=== PATIENT | male | born 1955 | race Two or more races ===

== ENCOUNTER → 2020-04-28 | Day surgery (SDC) | payer MEDICARE, MEDICAID ==
[2020-04-22 07:55] LABS: BASOPHILS % (AUTO) 1.8 % (0.0-2.0); EOSINOPHILS % (AUTO) 11.8 % (0.0-3.0); HEMATOCRIT 27.9 % (42.0-52.0); HEMOGLOBIN 8.5 G/DL (14.2-18.0); LYMPHOCYTES % (AUTO) 28.5 % (20.0-45.0); MEAN CORPUSCULAR VOLUME 60 FL (80-99); MONOCYTES % (AUTO) 11.7 % (1.0-10.0); NEUTROPHILS % (AUTO) 46.3 % (45.0-75.0); PLATELET COUNT 345 K/UL (150-450); RED BLOOD COUNT 4.68 M/UL (4.70-6.10); RED CELL DISTRIBUTION WIDTH 19.4 % (11.6-14.8); WHITE BLOOD COUNT 6.6 K/UL (4.8-10.8)
[2020-04-22 08:01] LABS: ANION GAP 8 mmol/L (5-15); BLOOD UREA NITROGEN 9 mg/dL (7-18); CALCIUM 8.7 MG/DL (8.5-10.1); CARBON DIOXIDE 25 MMOL/L (21-32); CHLORIDE 98 MMOL/L (98-107); CREATININE 1.1 MG/DL (0.55-1.30); POTASSIUM 4.3 MMOL/L (3.5-5.1); SODIUM 131 MMOL/L (136-145)
[2020-04-22 08:08] LABS: INR 1.2 (0.9-1.1)
--- NOTE | 2020-04-22 15:15 | Pre-op HX & Phy Repo 2 SIG ---
DATE OF ADMISSION: 04/28/2020 PRESURGICAL INTERNAL MEDICINE HISTORY AND PHYSICAL DATE OF EVALUATION: 04/22/2020. REASON FOR EVALUATION: I was asked by Dr. Caio Weems to see this 64-year-old Persian-speaking male, who is going for elective surgery on the right eye. The patient has a nuclear sclerotic cataract, right eye. Please see Ophthalmology History and Physical by Dr. Caio Weems. The patient was evaluated in outpatient procedure department. PAST MEDICAL HISTORY/REVIEW OF SYSTEMS: Remarkable for history of hypertension. No history of chest pain, palpitation, or heart attack. Denies history of diabetes. No history of stroke or seizures. Denies history of respiratory problem. No GI bleeding or hepatitis. No liver problem. Denies history of thyroid problem or renal insufficiency. PAST SURGICAL HISTORY: None. FAMILY HISTORY: Mother , had diabetes mellitus. Father, unknown. ALLERGIES: Not known. PRESENT MEDICATIONS: None. SOCIAL HISTORY: Denies history of tobacco use. The patient drinks approximately 4 to 6 beers a week. No street drugs. PHYSICAL EXAMINATION: GENERAL: Alert, well-developed, well-nourished male in his 60s, in no acute distress. VITAL SIGNS: Blood pressure 124/93, temperature 97.8, pulse 86, respirations 18, O2 saturation 100% on room air. SKIN: Clear. Warm. No rashes. No diaphoresis. LYMPHATICS: Lymph nodes not enlarged. HEENT: Head is normocephalic and atraumatic. Ears, clear, no discharge. Eyes, full description per Dr. Caio Weems. Mouth, clear and moist. No dentures. NECK: Supple. No jugular venous distention. Carotids artery +2. Trachea midline. CHEST: No deformity or asymmetry. LUNGS: Clear to auscultation and percussion. Bilateral rhonchi. HEART: Sinus, regular. No ectopy. No murmur. No S3, S4. ABDOMEN: Soft, benign. No rebound. No palpable mass. Liver and spleen are not enlarged. EXTREMITIES: No edema. The patient has bilateral varicose vein. No phlebitis or calf tenderness. GENITOURINARY: No dysuria. No CVA tenderness. NEUROLOGIC: No tremor. No nystagmus. 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 LABORATORY DATA: Sodium 133, potassium 4.3, chloride 99, BUN 9, creatinine 1.1. Estimated GFR more than 60 mL/min. Glucose 117 and calcium 8.9. CBC, hemoglobin 8.5, hematocrit 27.9, white blood cells 6.6, red blood cells 4.68, . PT 12.7, INR 1.2, PTT 27. COVID virus test pending, will be done Tuesday. IMPRESSION: 1. Nuclear sclerotic cataract, right eye. 2. Varicose vein, lower extremities. 3. Anemia, hemoglobin 8.5 and hematocrit 27.9. 4. 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 PLAN: Cataract extraction, right eye with intraocular lens implant per Dr. Caio Weems. CONCLUSION: The patient is a 64-year-old male with incomplete right bundle-branch block on EKG. Vital signs stable. Diastolic pressure . The patient has anemia, , cause unknown. The patient should be NPO after midnight Tuesday for Tuesday surgery, April 28, 2020. The patient's condition optimized for surgery, need evaluation for anemia. Chacho Lambert M.D. DR: FLAVIO JOB#: [id number] CC:
--- NOTE | 2020-04-23 14:00 | Opthalmology H&P ---
Ophthalmology H&P H&P Chief Complaint: decreased vision in right eye HPI Vision Affects Ability to: read, manage personal affairs Past Ocular History: glaucoma HPI Narrative Blurry vision Exam Visual Acuity: OD 20/200 OS 20/100 Tension: OD 14 OS 16 Eye Exam: normal OU: external exam, palpebral fissure-width, marginal reflex distance, levator function, corneas, anterior chambers, fundus exam; findings: lens - NS Cataracts OU Assessment/Plan Treatment Plan: cataract extraction w/ lens implant Goals of Treatment: improvement of vision, enhance quality of life Attestation Attestation The risks and benefits of the surgery as well as alternative procedures were explained to the patient in detail. Caio Weems MD Apr 23, 2020 14:00
--- NOTE | 2020-04-23 14:02 | Pre-Procedure Note/Attestation ---
Pre-Procedure Note/Attestation Complete Prior to Procedure Planned Procedure: right Procedure Narrative: Cataract extraction with intraocular lens implant right eye Indications for Procedure Pre-Operative Diagnosis: Cataract extraction with intraocular lens implant right eye Attestation I attest that I discussed the nature of the procedure; its benefits; risks and complications; and alternatives (and the risks and benefits of such alternatives), prior to the procedure, with the patient (or the patient's legal patient access representative). I attest that, if there was a reasonable possibility of needing a blood transfusion, the patient (or the patient's legal patient access representative) was given the [facility] standardized written summary, pursuant to the Tolu Gabe Blood Safety Act ([place] Health and Safety Code # 1645, as amended). I attest that I re-evaluated the patient just prior to the surgery and that there has been no change in the patient's H&P, except as documented below: Caio Weems MD Apr 23, 2020 14:02
[2020-04-28] VITALS (8 sets, daily range): BP systolic 137–174; BP diastolic 87–101
[~2020-04-28] VITALS: Ht 165.1 cm; Wt 65.8 kg
[~2020-04-28] MED LIST: Akten 3.5% 1ml Btl RIGHT EYE ONE; BSS 15ml BTL ONE; BSS 500ml btl ONE; Carbachol 0.01% Op Soln 1.5ml vial ONE; EPINEPHrine 1mg/1ml Amp ONE; LR 1000ml 1,000 ML IVLG SCH; LR 1000ml ONE; Maxitrol Opth Oint 3.5gm ONE; Midazolam 2mg/2ml Inj ONE; Pilocarpine 1% Opth 15ml Soln ONE; Povidone-Iodine 5% opth solution ONE; Proparacaine 0.5% Opth Soln 15ml RIGHT EYE ONE; Sodium Hyaluronate 10 mg/ml 0.85ml ONE; Tetracaine 0.5% Opth 4ml Soln RIGHT EYE ONE; fentaNYL 100 mcg/2 mL IV ONE; fentaNYL 100 mcg/2 mL IV PRN; prednisoLONE acetate 1% Opth Susp 1ml ONE
[2020-04-28] MEDS: Tropicamide 1% Opth 15ml Soln RIGHT EYE SCH ×3 (07:46→08:04)
[2020-04-28] MEDS: Diclofenac Sod 0.1% Op Soln RIGHT EYE SCH ×3 (07:46→08:04)
[2020-04-28] MEDS: Phenylephrine 10% Opth Soln 5ml RIGHT EYE SCH ×3 (07:46→08:04)
[2020-04-28] MEDS: Tobramycin Op Soln 0.3% 5ml RIGHT EYE SCH ×3 (07:46→08:04)
--- NOTE | 2020-04-28 09:52 | Anethesia Preoperative Eval ---
Anesthesia Pre-op PMH/ROS General Date of Evaluation: Apr 28, 2020 Time of Evaluation: 09:49 Anesthesiologist: Rosanna ASA Score: ASA 2 Mallampati Score Class I : Soft palate, uvula, fauces, pillars visible Class II: Soft palate, uvula, fauces visible Class III: Soft palate, base of uvula visible Class IV: Only hard plate visible Mallampati Classification: Class II Surgeon: Faustina Diagnosis: R eye cataract Surgical Procedure: Gataeract extraction Anesthesia History: none Family History: no anesthesia problems Allergies: Coded Allergies: No Known Allergies (Unverified , 04/22/20) Medications: see eMAR Patient NPO?: Yes Past Medical History Cardiovascular: Reports: HTN - borderline; Denies: CAD, NV, valve dz, arrhythmia, other Pulmonary: Denies: asthma, COPD, JANET, other Gastrointestinal/Genitourinary: Reports: GERD, other - BPH Neurologic/Psychiatric: Denies: dementia, CVA, depression/anxiety, TIA, other Endocrine: Denies: DM, hypothyroidism, steroids, other HEENT: Reports: cataract (L), cataract (R); Denies: glaucoma, SENECA (L), SENECA (R), other Hematology/Immune: Reports: anemia - Hb 8,5 needs GI consult and colonoscopy JERONIMO; Denies: DVT, bleeding disorder, other Musculoskeletal/Integumentary: Reports: OA; Denies: RA, DJD, DDD, edema, other PMH Narrative: as above PSxH Narrative: see H&P Anesthesia Pre-op Phys. Exam Physician Exam Last Vital Signs Date Time Temp Pulse Resp B/P (MAP) Pulse Ox O2 Delivery O2 Flow Rate FiO2 04/28/20 08:05 Room Air 04/28/20 07:56 98.5 89 18 137/87 99 Constitutional: NAD Neurologic: CN 2-12 intact Cardiovascular: RRR, no M/R/G Respiratory: CTA Gastrointestinal: S/NT/ND Airway Exam Mallampati Score: Class II Neck: stiff ROM: limited Teeth: missing Dentures: no upper, no lower Anesthesia Pre-op A/P Labs see chart Studies Pre-op Studies: EKG - SR Risk Assessment & Plan Assessment: ASA 2 Plan: Balwinder Carbone MD Apr 28, 2020 09:52
--- NOTE | 2020-04-28 11:20 | Immediate Post-Op Evaluation ---
Immediate Post-Op Evalulation Immediate Post-Op Evalulation Procedure: R eye cataract extraction with IOL Date of Evaluation: Apr 28, 2020 Time of Evaluation: 11:19 IV Fluids: 400 Blood Products: none Estimated Blood Loss: none Urinary Output: none Blood Pressure Systolic: 167 Blood Pressure Diastolic: 81 Pulse Rate: 64 Respiratory Rate: 20 O2 Sat by Pulse Oximetry: 98 Temperature (Fahrenheit): 97.6 Pain Score (1-10): 1 Nausea: No Vomiting: No Complications none Patient Status: awake, patent, none Hydration Status: adequate Balwinder Marte MD Apr 28, 2020 11:20
--- NOTE | 2020-04-28 11:53 | 48 Hour Post Anesthesia Eval ---
Post Anesthesia Evaluation Procedure: R eye cataract extraction with IOL Date of Evaluation: Apr 28, 2020 Time of Evaluation: 11:52 Blood Pressure Systolic: 160 0: 78 Pulse Rate: 68 Respiratory Rate: 20 Temperature (Fahrenheit): 97.8 O2 Sat by Pulse Oximetry: 98 Airway: patent Nausea: No Vomiting: No Pain Intensity: 1 Hydration Status: adequate Cardiopulmonary Status: stable Mental Status/LOC: patient returned to baseline Follow-up Care/Observations: n/a Post-Anesthesia Complications: none Follow-up care needed: ready to discharge Balwinder Marte MD Apr 28, 2020 11:53
--- NOTE | 2020-04-29 16:02 | Brief Operative Note ---
Immediate Post Operative Note Operative Note Chief Complaint: Blurry vision Pre-op Diagnosis: Cataract extraction with intraocular lens implant right eye Procedure: Cataract extraction with IOL implant right eye Post-op Diagnosis: Pseudo OD Findings: consistent w/pre-op dx studies Surgeon: Caio Weems MD Anesthesiologist: Balwinder Marte MD Anesthesia: MAC Specimen: none Complications: none Condition: stable Fluids: LR Estimated Blood Loss: none Drains: none Implant(s) used?: Yes - IOL-OD Caio Weems MD Apr 29, 2020 16:02
--- NOTE | 2020-04-29 16:07 | Operative Note - PDOC ---
Operative Note Operative Note Date of Operation/Procedure: Apr 28, 2020 Chief Complaint: Blurry vision Pre-op Diagnosis: Nuclear sclerotic/ Posterior subcapsular cataract right eye Procedure: Cataract extraction with IOL implant right eye Post-op Diagnosis: Pseudo OD Operative Findings: consistent w/pre-op dx studies Surgeon: Caio Weems MD Anesthesiologist: Balwinder Marte MD Anesthesia: MAC Specimen: none Complications: none Condition: stable Fluids: LR Estimated Blood Loss: none Drains: none Implant(s) used?: Yes - IOL-OD Indications for Procedure Nuclear sclerotic/ Posterior subcapsular cataract right eye Description of Procedure This patient has been complaining visually significant cataract in the right eye with the best corrected visual acuity of 20/200 and under moderate glare conditions worse. The patient complains of difficulties with glare in performing activities of daily living and wants to manage personal affairs with comfort and accuracy and see well enough to move with safety at home and outdoors independently. The risks, benefits and alternatives of the procedure were discussed with the patient in the office prior to scheduling surgery. All questions from the patie nt were answered after the surgical procedure was explained in detail. The risks of the procedure as explained to the patient include, but are not limited to, pain, infection, bleeding, loss of vision, retinal detachment, need for further surgery, loss of lens nucleus, double vision, etc. Alternative procedures were discussed which include, to do nothing or seek a second opinion. Informed consent for this procedure was obtained from the patient. The patient was referred to a primary care physician for a cardiopulmonary clearance prior to surgery, after proper evaluation was done patient was properly scheduled for outpatient surgery. The patient was brought to the operating room where the anesthesiologist established I.V. lines and cardiac monitoring leads. Mild intravenous sedation was administered. The patient was then prepared with a 5% solution of povidone-iodine to the conjunctival fornix and lashes, and a 5% solution of povidone-iodine to the lids and periorbital skin. The patient was then draped in the usual sterile fashion. A lid speculum was then placed in the operative eye. A keratome blade was then used to create a biplanar incision into the anterior chamber. Viscoelastics was then instilled into the anterior chamber. A capsulorrhexis was then fashioned with an utrata forceps A G 27 cannula was used to hydrodissect and hydro delineate the lens nucleus. Paracentesis incision was made at 3 o'clock with sharp blade. The phacoemulsification unit, after being properly adjusted and tested, was then used to emulsify the nucleus followed by aspiration and irrigation of residual cortical material. Healon was then instilled into the anterior chamber. The corneal wound was then enlarged to the size of the optic with the aryan keratome blade. The intraocular lens was then inspected for right power and size and thought to be satisfactory. Then the lens was gently placed in the capsular bag. Positioning within the capsular bag was confirmed by direct visualization. Optic centration was accomplished with a Sinskey hook. Viscoelastics was removed from the anterior chamber using the irrigation and aspiration unit. The corneal wound was then tested for leaks and none were found. The lid speculum were then removed. Sponge and needle counts were correct. An eye patch and shield were placed over the operative eye. The patient was taken to the recovery room in stable condition. There were no complications. The patient tolerated the procedure well. The patient was then transferred to the ambulatory surgery unit in stable and satisfactory condition, was given detailed written instructions and asked to follow up in the office the next day. Caio Weems MD Apr 29, 2020 16:07
== END | disposition home or self-care (01) ==
LOC: SUR 06:34
DX: H25.11 Age-related nuclear cataract, right eye (principal); H25.041 Posterior subcapsular polar age-related cataract, right eye; I83.93 Asymptomatic varicose veins of bilateral lower extremities; D64.9 Anemia, unspecified; I45.2 Bifascicular block; M19.90 Unspecified osteoarthritis, unspecified site; K21.9 Gastro-esophageal reflux disease without esophagitis
CPT/HCPCS: 36415; 66984; 80048; 85025; 85610; 85730; 93005; 94003; J0171; J1100; J2250; J2704; J3010; J3370; J7120; U0002; V2632; 94150